=== PATIENT | female | born 1995 | race Caucasian/White ===

== ENCOUNTER 2017-04-10 09:03 | Emergency (ER) | payer SELFPAY ==
[2016-07-20 19:30] VITALS: Ht 165.1 cm; Wt 89.4 kg
[~2017-04-10] VITALS: Ht 165.1 cm; Wt 89.4 kg
[~2017-04-10 09:03] MED LIST: ACE3 PO; ACET-1966 PO; BUTA1CAP4 PO; Benzocaine 60 ML TP; DOCU240C67 PO; IBUP800T37 PO; Lanolin TP; PREN-127 PO; TUCKS TP
--- NOTE | 2017-04-10 09:15 | ER Report ---
History and Physical Time Seen By MD: 09:14 Hx. of Stated Complaint: PT PRESENTS WITH NON PROD COUGH, DYSPNEA AND POSS FEVER SINCE WEDNESDAY. INTERMITANT CHEST DISCOMFORT WHICH GOT WORSDE THIS AM HPI/ROS 21-year-old otherwise healthy female presents to the emergency department with flulike symptoms for the past 2-3 days. She also reports pleuritic chest pain. She reports cough subjective fever chills, pleuritic chest pain and diffuse back pain. Also reports nausea and vomiting, although does not complain of abdominal pain. No dysuria. To take by mouth. Was mostly concerned with the chest pain. She has Nexplanon, does not smoke, and has no PE risk factors. Remainder of the 14 system rev: Yes Allergies: Coded Allergies: latex (Verified Allergy, Unknown, 04/10/17) Home Meds Active Scripts Ibuprofen (IBUPROFEN) 600 Mg Tablet, 1 TAB PO Q6H for 10 Days, #30 TAB Prov:ARI PENN MD 04/10/17 Ondansetron (ZOFRAN ODT) 4 Mg Tab.rapdis, 4 MG PO Q6H Y for NAUSEA/VOMITING, # 20 TAB.BRITTANY 0 Refills Prov:ARI PENN MD 04/10/17 Ibuprofen (IBUPROFEN) 800 Mg Tablet, 800 MG PO Q8H@0700,1500,2300 for 10 Days, TAB Prov:ANNE MUÑOZ MD 07/23/16 Discontinued Reported Medications Butalb/Acetaminophen/Caffeine (FIORICET 50-300-40 MG CAPSULE) 1 Each Capsule, 1 EACH PO Q4H Y for HEADACHE, CAPSULE 07/20/16 Vits W-Ca,Fe,Fa(<1MG) ( VITAMINS) 1 Each Tablet, 1 EACH PO DAILY, TAB 06/05/16 Discontinued Scripts [Lanolin Oint 7 Gm Tube] 7 GM OINT No Conflict Check, 0 GM TP PRN Y for DISCOMFORT FOR NURSING MOTHERS, TUBE Prov:ANNE MUÑOZ MD 07/23/16 Glycerin/Witch Colleen [place] (PREPARATION H) 1 Pkg Pad, 0 PKG TP PRN Y for PAIN for 10 Days, PAD Prov:ANNE MUÑOZ MD 07/23/16 Docusate Calcium (DOCUSATE CALCIUM) 240 Mg Capsule, 240 MG PO BID for 10 Days, CAPSULE Prov:ANNE MUÑOZ MD 07/23/16 [Benzocaine 20% 60 Ml Btl] 60 ML AERS No Conflict Check, 0 ML TP PRN Y for PAIN for 10 Days Prov:ANNE MUÑOZ MD 07/23/16 Acetaminophen/Codeine (TYLENOL #3 (OR EQUIV)) 1 Ea Tab, 1-2 EACH PO Q4H Y for PAIN, #10 TAB Prov:ANNE MUÑOZ MD 07/23/16 Reviewed Nurses Notes: Yes Old Medical Records Reviewed: Yes Hx Smoking: No Smoking Status: Never Smoker Exposure to Second Hand Smoke?: No Hx Substance Use Disorder: No Hx Alcohol Use: No Constitutional Vital Sign - Last 24 Hours 04/10/17 09:07 Temp 99.5 Pulse 107 Resp 20 Intake and Output 04/10/17 04/10/17 04/11/17 15:00 23:00 07:00 Intake Total 1000 ml Balance 1000 ml Physical Exam General Appearance: The patient is alert, has no immediate need for airway protection and no current signs of toxicity. Eyes: Pupils equal and round no injection. Respiratory: Chest is non tender, lungs are clear to auscultation. Cardiac: regular rhythm but tachycardic Gastrointestinal: Abdomen is soft and non tender, no masses, bowel sounds normal. Neck: Neck is supple and non tender. Extremities have full range of motion and are non tender. Skin: No rashes or lesions. DIFFERENTIAL DIAGNOSIS: After history and physical exam differential diagnosis was considered for adult fever including but not limited to viral syndromes including influenza, urinary tract infection, pneumonia and sepsis. Medical Decision Making Data Points Result Diagram: 04/10/17 0945 04/10/17 0945 Laboratory Hematology Test 04/10/17 09:45 04/10/17 10:10 04/10/17 10:46 Red Blood Count 5.01 M/uL (4.17-5.56) Mean Corpuscular Volume 80.7 fL (80.0-96.0) Mean Corpuscular Hemoglobin 26.8 pg (26.0-33.0) Mean Corpuscular Hemoglobin Concent 33.2 g/dL (32.0-36.0) Red Cell Distribution Width 14.3 % (11.5-14.5) Mean Platelet Volume 8.6 fL (7.2-11.1) Neutrophils (%) (Auto) 69.7 % (39.4-72.5) Lymphocytes (%) (Auto) 16.0 % (17.6-49.6) Monocytes (%) (Auto) 13.8 % (4.1-12.4) Eosinophils (%) (Auto) 0.1 % (0.4-6.7) Basophils (%) (Auto) 0.4 % (0.3-1.4) Nucleated RBC Relative Count (auto) 0.0 /100WBC Neutrophils # (Auto) 7.0 K/uL (2.0-7.4) Lymphocytes # (Auto) 1.6 K/uL (1.3-3.6) Monocytes # (Auto) 1.4 K/uL (0.3-1.0) Eosinophils # (Auto) 0.0 K/uL (0.0-0.5) Basophils # (Auto) 0.0 K/uL (0.0-0.1) Nucleated RBC Absolute Count (auto) 0.00 K/uL Peripheral Blood Smear No Y/N Sodium Level 140 mmol/L (137-145) Potassium Level 4.6 mmol/L (3.5-5.0) Chloride Level 105 mmol/L (98-107) Carbon Dioxide Level 23 mmol/L (22-31) Blood Urea Nitrogen 7 mg/dl (7-18) Creatinine 0.50 mg/dl (0.52-1.04) Glomerular Filtration Rate Calc > 60.0 Random Glucose 101 mg/dl (75-110) Calcium Level 9.1 mg/dl (8.4-10.2) Total Bilirubin 0.4 mg/dl (0.2-1.3) Aspartate Amino Transf (AST/SGOT) 29 U/L (0-35) Alanine Aminotransferase (ALT/SGPT) 40 U/L (0-56) Alkaline Phosphatase 93 U/L (0-126) Total Protein 7.2 gm/dl (6.3-8.2) Albumin 4.1 g/dl (3.5-5.0) Human Chorionic Gonadotropin, Qual Negative (NEGATIVE) D-Dimer Quantitative (PE/DVT) 0.35 ug/ml (0-0.50) Influenza Virus Type A (PCR) Negative (NEGATIVE) Influenza Virus Type B (PCR) Negative (NEGATIVE) Chemistry Test 04/10/17 09:45 04/10/17 10:10 04/10/17 10:46 White Blood Count 10.0 k/uL (4.5-11.0) Red Blood Count 5.01 M/uL (4.17-5.56) Hemoglobin 13.4 g/dL (12.0-16.0) Hematocrit 40.5 % (34.0-47.0) Mean Corpuscular Volume 80.7 fL (80.0-96.0) Mean Corpuscular Hemoglobin 26.8 pg (26.0-33.0) Mean Corpuscular Hemoglobin Concent 33.2 g/dL (32.0-36.0) Red Cell Distribution Width 14.3 % (11.5-14.5) Platelet Count 328 K/uL (150-450) Mean Platelet Volume 8.6 fL (7.2-11.1) Neutrophils (%) (Auto) 69.7 % (39.4-72.5) Lymphocytes (%) (Auto) 16.0 % (17.6-49.6) Monocytes (%) (Auto) 13.8 % (4.1-12.4) Eosinophils (%) (Auto) 0.1 % (0.4-6.7) Basophils (%) (Auto) 0.4 % (0.3-1.4) Nucleated RBC Relative Count (auto) 0.0 /100WBC Neutrophils # (Auto) 7.0 K/uL (2.0-7.4) Lymphocytes # (Auto) 1.6 K/uL (1.3-3.6) Monocytes # (Auto) 1.4 K/uL (0.3-1.0) Eosinophils # (Auto) 0.0 K/uL (0.0-0.5) Basophils # (Auto) 0.0 K/uL (0.0-0.1) Nucleated RBC Absolute Count (auto) 0.00 K/uL Peripheral Blood Smear No Y/N Glomerular Filtration Rate Calc > 60.0 Calcium Level 9.1 mg/dl (8.4-10.2) Total Bilirubin 0.4 mg/dl (0.2-1.3) Aspartate Amino Transf (AST/SGOT) 29 U/L (0-35) Alanine Aminotransferase (ALT/SGPT) 40 U/L (0-56) Alkaline Phosphatase 93 U/L (0-126) Total Protein 7.2 gm/dl (6.3-8.2) Albumin 4.1 g/dl (3.5-5.0) Human Chorionic Gonadotropin, Qual Negative (NEGATIVE) D-Dimer Quantitative (PE/DVT) 0.35 ug/ml (0-0.50) Influenza Virus Type A (PCR) Negative (NEGATIVE) Influenza Virus Type B (PCR) Negative (NEGATIVE) Coagulation Test 04/10/17 10:10 D-Dimer Quantitative (PE/DVT) 0.35 ug/ml ED Course/Re-evaluation ED Course 21-year-old female presented to the emergency department with pleuritic chest pain, subjective fever chills, bodyaches, cough, and nausea and vomiting. Also tachycardic upon arrival. She was given 1 L normal saline, Toradol, and Zofran with relief of symptoms. An EKG was obtained and shows sinus tachycardia. She is low risk for a PE and has a negative d-dimer so a CTA of the chest not indicated. Her chest x-ray was normal. Her labs including influenza were all normal are negative. I think this represents a non-influenza A or B viral syndrome. I counseled her to continue with supportive care. I will discharge her with ibuprofen 600 mg tabs as well as Zofran. Decision to Disposition Date: Apr 10, 2017 Decision to Disposition Time: 11:58 Depart Departure Latest Vital Signs Vital Signs Date Time Temp Pulse Resp B/P (MAP) Pulse Ox O2 Delivery O2 Flow Rate FiO2 04/10/17 09:07 99.5 107 20 Impression: Primary Impression: Viral syndrome Condition: Improved Referrals: BLAZE ABBOTT DO (PCP) New Scripts Ibuprofen (IBUPROFEN) 600 Mg Tablet 1 TAB PO Q6H for 10 Days, #30 TAB Prov: ARI PENN MD 04/10/17 Ondansetron (ZOFRAN ODT) 4 Mg Tab.rapdis 4 MG PO Q6H Y for NAUSEA/VOMITING, #20 TAB.BRITTANY 0 Refills Prov: ARI PENN MD 04/10/17 Patient Instructions: Viral Syndrome (ED) ARI PENN MD Apr 10, 2017 09:15
[2017-04-10] MEDS ORDERED: NS(*) 0.9% 1000 ML BAG 1,000 ML IV ONE (09:31)
[2017-04-10] MEDS ORDERED: ONDANSETRON 4 MG/2 ML VIAL IVP ONE (09:35)
[2017-04-10] MEDS ORDERED: KETOROLAC 30 MG/ML VIAL IVP ONE (09:35)
[2017-04-10 10:01] LABS: PLATELET COUNT, AUTOMATED 328 K/uL (150-450)
--- NOTE | 2017-04-10 10:18 | RADIOLOGY IMAGING REPORT ---
FACILITY: [facility] PATIENT NAME: Dinora Fu : 1995 MR: [id number] V: [id number] EXAM DATE: ORDERING PHYSICIAN: ARI PNEN TECHNOLOGIST: Location: [facility] Patient: Dinora Fu : 1995 Visit/Account:[id number] Date of Sevice: 04/10/2017 EXAMINATION: Chest radiographs 2 views HISTORY: Chest pain. Respiratory distress. COMPARISON: None. FINDINGS: PA and lateral views of the chest are submitted. Lines/tubes: None. Lungs/pleura: No focal consolidation or pleural effusion. Pulmonary vascularity is within normal hinkle its. No evidence of pneumothorax. Heart: Normal heart size. Mediastinum: Negative. Bony structures/body wall: Negative. IMPRESSION: No radiographic evidence of acute cardiopulmonary disease. Report Dictated By: Julio Cornelius MD at 04/10/2017 10:12 AM Report E-Signed By: Julio Cornelius MD at 04/10/2017 10:13 AM WSN:[id number]
[2017-04-10 12:00] VITALS: BP 105/70
[2017-04-10] MEDS ORDERED: IBUP600T22 PO (12:02)
[2017-04-10] MEDS ORDERED: ONDA4TAB PO (12:02)
--- NOTE | 2017-04-10 16:47 | EKG ---
FACILITY: [facility] [place] PATIENT NAME: STEVIE CHILDERS : [id number] MR: [id number] V: [id number] EXAM DATE: ORDERING PHYSICIAN: ARI PENN TECHNOLOGIST: ANASTACIO Mcdonald Reason : RESPIRATORY Blood Pressure : / mmHG Vent. Rate : 105 BPM Atrial Rate : 105 BPM P-R Int : 130 ms QRS Dur : 078 ms QT Int : 346 ms P-R-T Axes : 026 059 016 degrees QTc Int : 457 ms Sinus tachycardia Otherwise normal ECG No previous ECGs available Confirmed by WILL RAMIREZ ([id number]) on 04/10/2017 8:37:35 PM Referred By: FILI Confirmed By:WILL RAMIREZ
== END 2017-04-10 12:14 | disposition home or self-care (01) ==
LOC: ER 09:03
DX: B34.9 Viral infection, unspecified (principal)
CPT/HCPCS: 36415; 71046; 84703; 85025; 85379; 87502; 93005; 96361; 96374; 96375; 99284; J1885; J2405; J7030; 82040; 82247; 82310; 82374; 82435; 82565; 82947; 84075; 84132; 84155; 84295; 84450; 84460; 84520

== ENCOUNTER → 2018-03-18 | Outpatient (CLI) | payer MEDICAID ==
[2016-07-20 19:30] VITALS: BMI 35.8
[~2018-03-18] MED LIST changes: +IBUP600T22 PO; +ONDA4TAB PO
[2018-03-18 11:06] LABS: PLATELET COUNT, AUTOMATED 305 K/uL (150-450)
== END ==
LOC: LAB 08:01
PROVIDERS: ATTEND Obstetrics & Gynecology
DX: Z34.91 Encounter for supervision of normal pregnancy, unspecified, first trimester (principal)
CPT/HCPCS: 36415; 81001; 85025; 86592; 86703; 86762; 86850; 86900; 86901; 87088; 87340

== ENCOUNTER → 2018-03-23 | Outpatient (CLI) | payer MEDICAID ==
[2016-07-20 19:30] VITALS: BMI 35.8
== END ==
LOC: LAB 08:51
PROVIDERS: ATTEND Student in an Organized Health Care Education/Training Program
DX: Z34.91 Encounter for supervision of normal pregnancy, unspecified, first trimester (principal)
CPT/HCPCS: 87491; 87591

== ENCOUNTER → 2018-05-16 | Outpatient (CLI) | payer MEDICAID ==
[2016-07-20 19:30] VITALS: BMI 35.8
[~2018-05-16] MED LIST changes: +ASPI1TAB35 PO; +BUTA1CAP6 PO; +ONDA4TAB97 PO
--- NOTE | 2018-05-16 14:32 | RADIOLOGY IMAGING REPORT ---
FACILITY: [facility] - [place] PATIENT NAME: Dinora Fu : 1995 MR: [id number] V: [id number] EXAM DATE: ORDERING PHYSICIAN: BLAZE ABBOTT TECHNOLOGIST: Location: [facility] Patient: Dinora Fu : 1995 Visit/Account:[id number] Date of Sevice: 05/16/2018 [facility] [place] HISTORY: 20 week anatomical survey, history of hypertension COMPARISON: None. TECHNIQUE: Transabdominal imaging was performed for assessment of the fetus and maternal pelvic s tructures. Transvaginal imaging was not performed. FINDINGS: Intrauterine gestations: One. presentation: Breech. heart rate: 158 bpm. Amniotic fluid volume: Normal; HELADIO 10.47 cm; MVP 3.79 cm. Placenta: Posterior. The distal edge of the placenta is 3.93 cm from the cervix. Uterus: Gravid, otherwise grossly unremarkable where visualized. Maternal adnexa/ovaries: Grossly unremarkable, ovaries not visualized. Cervix: Grossly long and closed. Gestational Parameters: BPD: 4.35 cm, 18th percentile HC: 17.53 cm, 44th percentile AC: 15.5 cm, 67th percentile FL: 3.04 cm, 22nd percentile Average ultrasound age (AUA): 20 weeks/ zero days Estimated age based on LMP: 20 weeks/ zero days Estimated weight (EFW): 329 grams +/- 48 grams Anatomic Survey: Intracranial structures, 4-chamber heart, stomach, kidneys, urinary bladder, spine, 3-vessel cord and cord insertion are unremarkable. Two upper and two lower extremities visualized. IMPRESSION: Single viable fetus in breech presentation with an estimated gestational age by measurements of 20 we eks and zero days. This corresponds to the estimated age by LMP of 20 weeks and zero days Estimated weight 329 g The placenta is posterior with the distal edge 3.93 cm from the cervix Report Dictated By: Deepika Simpson MD at 05/16/2018 2:12 PM Report E-Signed By: Deepika Simpson MD at 05/16/2018 2:26 PM WSN:[id number]
== END ==
LOC: RAD 09:07
PROVIDERS: ATTEND Student in an Organized Health Care Education/Training Program
DX: Z02.9 Encounter for administrative examinations, unspecified (principal)

== ENCOUNTER 2018-06-17 21:47 | Outpatient (CLI) | payer MEDICAID ==
[~2018-06-17] VITALS: Ht 167.6 cm; Wt 98.4 kg
[2018-06-17 22:18] VITALS: Ht 167.6 cm; Wt 98.4 kg
--- NOTE | 2018-06-18 00:42 | RADIOLOGY IMAGING REPORT ---
FACILITY: [facility] - [place] PATIENT NAME: Dinora Fu : 1995 MR: [id number] V: [id number] EXAM DATE: [id number] ORDERING PHYSICIAN: IZZY NUNEZ TECHNOLOGIST: Location: [facility] [place] Patient: Dinora Fu : 1995 Visit/Account:[id number] Date of Sevice: 06/17/2018 ultrasound: Indication: Spotting and cramping. Technique: Routine imaging, with Doppler. Comparison: 05/16/2018 position and heart rate: There is a single live intrauterine gestation in a breech presentation . The heart rate is 140. anatomy: Unremarkable, as visualized. Measurements, EFA, and EDC: BPD - 6.1 cm (24 weeks 6 days) (50th percentile) Head circumference - 22.9 cm (25 weeks 0 days) (43rd percentile) Abdominal circumference - 20.6 cm (25 weeks 2 days) (60th percentile) Femur length - 4.5 cm (25 weeks 0 days) (48th percentile) Estimated age - 25 weeks 1 day CHUN - 09/29/2018 EFW - 761 g (61st percentile) Placenta: Posterior and homogeneous. There is no evidence of placenta previa or abruption. Cervical length: 4.5 cm. The cervix is closed. Amniotic fluid: The HELADIO measures 13.3 cm. The MVP was 4.7 cm. IMPRESSION: There is a single live intrauterine gestation in a breech presentation, as detailed above . No acute abnormality is identified. Report Dictated By: Zachary Jain MD at 06/18/2018 12:31 AM Report E-Signed By: Zachary Jain MD at 06/18/2018 12:39 AM WSN:[id number]
== END 2018-06-17 23:30 | disposition home or self-care (01) ==
LOC: OB 21:47 → L&D 21:47 → UNDOADMOB 21:47 → OB 21:47 → L&D 23:30 → UNDODISOB 23:30 → EDSTATUS 06-20 15:49
PROVIDERS: ATTEND Obstetrics & Gynecology
DX: O26.892 Other specified pregnancy related conditions, second trimester (principal); Z3A.26 26 weeks gestation of pregnancy
CPT/HCPCS: 76815; 81001; 82731; 84112; G0463; 99213; G0378; G0379

== ENCOUNTER → 2018-06-28 | Outpatient (CLI) | payer MEDICAID ==
[2018-06-22 07:51] VITALS: BMI 33.9
[~2018-06-28] MED LIST changes: +METR-1 PO
== END ==
LOC: LAB 13:15
PROVIDERS: ATTEND Student in an Organized Health Care Education/Training Program
DX: R30.0 Dysuria (principal); N89.8 Other specified noninflammatory disorders of vagina
CPT/HCPCS: 87088; 87210

== ENCOUNTER → 2018-07-14 | Outpatient (CLI) | payer MEDICAID ==
[2018-06-22 07:51] VITALS: BMI 33.9
[2018-07-14 12:42] LABS: PLATELET COUNT, AUTOMATED 288 K/uL (150-450)
== END ==
LOC: LAB 08:22
PROVIDERS: ATTEND Student in an Organized Health Care Education/Training Program
DX: Z34.92 Encounter for supervision of normal pregnancy, unspecified, second trimester (principal)
CPT/HCPCS: 36415; 82950; 85025

== ENCOUNTER → 2018-09-02 | Outpatient (CLI) | payer MEDICAID ==
[2018-06-22 07:51] VITALS: BMI 33.9
[~2018-09-02] MED LIST changes: +DIPH0.5S2 IM
== END ==
LOC: LAB 15:59
PROVIDERS: ATTEND Obstetrics & Gynecology
DX: O16.3 Unspecified maternal hypertension, third trimester (principal)
CPT/HCPCS: 36415; 82040; 82247; 82310; 82374; 82435; 82565; 82570; 82947; 84075; 84132; 84155; 84156; 84295; 84450; 84460; 84520; 85027

== ENCOUNTER → 2018-09-07 | Outpatient (CLI) | payer MEDICAID ==
[2018-06-22 07:51] VITALS: BMI 33.9
== END ==
LOC: LAB 09:31
PROVIDERS: ATTEND Student in an Organized Health Care Education/Training Program
DX: Z36.85 Encounter for antenatal screening for Streptococcus B (principal)
CPT/HCPCS: 87081

== ENCOUNTER → 2018-09-09 | Outpatient (CLI) | payer MEDICAID ==
[2018-06-22 07:51] VITALS: BMI 33.9
== END ==
LOC: LAB 11:52
PROVIDERS: ATTEND Advanced Practice Midwife
DX: O26.899 Other specified pregnancy related conditions, unspecified trimester (principal)
CPT/HCPCS: 84112

== ENCOUNTER 2018-09-11 00:10 | Outpatient (CLI) | payer MEDICAID ==
[2018-09-11] MEDS ORDERED: ACETAMINOPHEN 500 MG TAB PO ONE (01:15)
[2018-09-11] MEDS ORDERED: ACETA/BUTAL/CAFF 325/50/40 TAB PO PRN (01:15)
[2018-09-11] MEDS ORDERED: LR(*) 1000 ML BAG 1,000 ML IV PRN (01:29)
[2018-09-11 02:39] LABS: PLATELET COUNT, AUTOMATED 283 K/uL (150-450)
--- NOTE | 2018-09-11 02:50 | History & Physical ---
History of Present Illness Age of Patient: 22 : 2 Para or TPAL: 1 Estimated Gestational Age: 36.6 Chief Complaint Pt reported regular contractions at home starting 09/10/18 at 2230 anywhere from 3-5 minutes apart. She rates her pain about a 5 and sometimes more. The contra ction starts in her back and radiates to her front. +FM, no LOF or VB. She reports a headache all day long that she has taken Firocet for without relief. She has been getting frequent headaches in the last few weeks. She denies vision changes, but does have some RUQ pain. Her baseline labs were normal last week and up until today she has not had a qualifying elevated pressure. Her mother is at the bedside with her. History Patient's Blood Type: A Positive Rubella Status: Immune Group B Strep Screen: Negative Allergies: Coded Allergies: latex (Verified Allergy, Unknown, 04/10/17) Social History: No T/E/D. Family History: FH: diabetes mellitus BROTHER OR SISTER Maternal Grandmother Maternal Grandfather FH: hypertension Med Rec Home Meds Active Scripts Butalb/Acetaminophen/Caffeine (FIORICET 50-300-40) 1 Each Capsule, 1-2 EACH PO Q6H, #30 CAPSULE 1 Refill Prov:BLAZE ABBOTT DO 06/28/18 Reported Medications Aspirin/Acetaminophen/Caffeine (EXCEDRIN EXTRA STRENGTH CAPLET) 1 Each Tablet, 1 EACH PO 05/16/18 Acetaminophen (TYLENOL) 325 Mg Tablet, 325 MG PO PRN, TAB 03/18/18 Vits W-Ca,Fe,Fa(<1MG) ( VITAMINS) 1 Each Tablet, 1 EACH PO DAILY, TAB 03/18/18 Review of Systems Constitutional: No Fever Respiratory: Shortness of Breath Gastrointestinal: No Nausea, No Vomiting; Diarrhea Musculoskeletal: Pain (back and abdominal pain with contractions) Psychiatric: No Depression, No Anxiety Exam General Exam Vital Signs Vital Signs Date Time Temp Pulse Resp B/P (MAP) Pulse Ox O2 Delivery O2 Flow Rate FiO2 09/11/18 02:59 97.7 117 20 131/73 (92) 91 Room Air General Apperance: Alert/Awake/No Acute Distress Neuro: No Gross deficits Eyes: Normal Extraocular Movement & Vison ENT: Normal Cardiovascular: Regular Rate and Rhythm Respiratory: No Respiratory Distress Abdomen: Gravid - Tender (all over abdomen, but has been having this the last week) : Normal Musculoskeletal: No Weakness/Pain Psychological: Alert & Oriented X3, Appropriate Mood & Affect Cervical Dialation: 3 Cervical Effacement (%): 60 Cervical Consistency: Moderate Cervical Position: Posterior Station: -2 Presentation: Vertex (confirmed with US) Uterine Contraction Strength: Mild (3-9 min apart) UC Resting Tone: Soft Fetus Feeling Movement?: Yes Estimated Weight(grams): 3200 Heart Tones: 130 Heart Tone Variabilty: Moderate FHT Accelerations: Present, 15X15 FHT Decelerations: None Medical Decision Making Data Points Result Diagram: 09/11/1822809/11/18228 P to C: .13 Imaging Ultrasound/Imaging vertex confirmed cephalic by nurses VTE Prophylasis: Adult Pharmacological Contraindicati: Pt at Low Risk for VTE Mechanical Contraindications: Pt at Low Risk for VTE Assessment and Plan Hospital Day: 1 Problems: (1) 36 weeks gestation of Status: Acute (2) Uterine contractions Onset Date: ~ 09/10/2018 Status: Acute Assessment & Plan: LG is a 22y.o. at 36w6d wks with an Estimated Date of Delivery: dated by LMP and first trimester US here for complaints of painful, regular uterine contractions Labor state: Possibly early labor, Admit to triage for IVF, Pre E labs (WNL) and rest. Plan to recheck cervix in 2 hours from first check to monitor for cervical change. If no change and contractions are still painful give patient option of discharge home with 5mg Ambien or therapeutic rest (morphine 8mg IM and 25 mg Po Phenergan) under observation to monitor for active labor. Reviewed R/B/A with pt and pt would like Therapeutic rest if she has no cervical change. well-being: Category I FHT: intermittent monitoring for first 2 hours and then continuous monitoring if Therapeutic rest is used, along with continuous maternal o2 saturation. Maternal well-bein mild range BPs at admission time ( less than 4 hours apart) and then normotensive, Afebrile, membranes presumed intact PNL: GBS Neg, Type/Rh A+, rubella immune Pain Management: If labor plans for epidural. Morphine and Phenergan if therapeutic rest c/b: * Hx in first of Pre Eclampsia: on baby asa 81mg. Baseline labs WNL * First delivery of 37 0/7 Anticipate labor progression, re-evaluate in 2-3 hours or prn SARATH GUERRA CNM Sep 11, 2018 02:50
[2018-09-11 02:59] VITALS: BP 131/73
[2018-09-11] MEDS ORDERED: hydrOXYzine PAMOATE 25 MG CAP PO ONE (03:40)
[2018-09-11] MEDS ORDERED: PROMETHAZINE 25 MG/ML 1 ML AMP IM ONE (03:50)
[2018-09-11] MEDS ORDERED: MORPHINE 10 MG/ML SYR IM ONE (03:55)
[2018-09-11] MEDS ORDERED: MORPHINE 2 MG/ML SYR ONE ×2 (04:17→04:18)
[2018-09-11] MEDS ORDERED: PROMETHAZINE HCL 25 MG TAB PO ONE (04:40)
[2018-09-11] MEDS ORDERED: MORPHINE 2 MG/ML SYR IM ONE (04:40)
--- NOTE | 2018-09-11 11:47 | Labor Progress Note ---
Labor Subjective Progress Notes Subjective Pt has been sleeping mostly since morphine and Phenergan. When her cervix was rechecked at 0330, there was no change, so she opted for therapeutic rest. Contractions spaced out and pt was feeling less pain. Headache subsided after Fioricet as well. At 0500 pt's cervix was still the same. +FM, no LOF or VB. Feeling Movement?: Yes Labor Pain: Mild Neurological: No Headache Eyes: No Visual Disturbances Labor Objective Vital Signs Vital Signs Date Time Temp Pulse Resp B/P (MAP) Pulse Ox O2 Delivery O2 Flow Rate FiO2 09/11/18 02:59 97.7 117 20 131/73 (92) 91 Room Air Presentation: Vertex Uterine Contraction Strength: Mild (difficult to assess contraction pattern, pt sleeping through) UC Resting Tone: Soft Fetus Heart Tones: 130 Heart Tone Variabilty: Moderate FHT Accelerations: Present, 15X15 FHT Decelerations: None FHT Category: I Other Result Diagram: 09/11/1822809/11/18228 Assessment and Plan Problems: (1) 36 weeks gestation of Status: Acute (2) Uterine contractions Onset Date: ~ 09/10/2018 Status: Acute Assessment & Plan: LG is a 22y.o. at 36w6d wks with an Estimated Date of Delivery: dated by LMP and first trimester US here for complaints of painful, regular uterine contractions Labor state: Suspecting prodromal labor as no cervical change all night. Nurse will check cervix when pt wakes. If no change plan for DC to home with labor precautions, increase hydration, resting when she can and preeclampsia precautions. Plan to return for regularly scheduled OB with Dr. Haywood this week as well at BP check. well-being: Category I FHT: continuous monitoring Maternal well-bein mild range BPs at admission time ( less than 4 hours apart) and then normotensive, Afebrile, membranes presumed intact PNL: GBS Neg, Type/Rh A+, rubella immune Pain Management: If labor plans for epidural c/b: * Hx in first of Pre Eclampsia: on baby asa 81mg. Baseline labs WNL * First delivery of 37 0/7 Anticipate discharge to home and RTC for regularly scheduled OB visit and BP check this week SARATH GUERRA CNM Sep 11, 2018 11:47
[2018-09-13 16:15] VITALS: Ht 170.2 cm
== END 2018-09-11 12:35 | disposition home or self-care (01) ==
LOC: OB 00:10 → L&D 00:10 → UNDODISOB 11:58 → L&D 12:35 → EDSTATUS 09-12 16:55
PROVIDERS: ATTEND Obstetrics & Gynecology
DX: O47.03 False labor before 37 completed weeks of gestation, third trimester (principal); Z3A.36 36 weeks gestation of pregnancy
CPT/HCPCS: 36415; 81001; 82570; 84156; 85025; G0463; J2270; J7120; Q0169; 82040; 82247; 82310; 82374; 82435; 82565; 82947; 84075; 84132; 84155; 84295; 84450; 84460; 84520; 99213; G0378; G0379

== ENCOUNTER 2018-09-13 15:11 | Inpatient (IN) | payer MEDICAID ==
[~2018-09-13] VITALS: Ht 167.6 cm; Wt 107.0 kg
[2018-09-13] MEDS ORDERED: OXYTOCIN 30 UNIT/NS 500 ML 500 ML IV PRN (16:06)
[2018-09-13] MEDS ORDERED: FAMOTIDINE(*) 20MG/50ML PREMIX 50 ML IVPB PRN (16:06)
[2018-09-13] MEDS ORDERED: LR(*) 1000 ML BAG 1,000 ML IV PRN (16:06)
[2018-09-13] MEDS ORDERED: ceFAZolin(*) 2GM/D5W 50ML 50 ML IVPB PRN (16:06)
[2018-09-13] MEDS ORDERED: LIDOCAINE 1% LOCAL 300 MG/30ML INJ PRN (16:10)
[2018-09-13] MEDS ORDERED: fentaNYL CITR 100 MCG/2 ML AMP IVP PRN (16:10)
[2018-09-13] MEDS ORDERED: FAMOTIDINE 20 MG TAB PO PRN (16:10)
[2018-09-13] MEDS ORDERED: FLUSH 10 ML SYR IVP PRN (16:10)
[2018-09-13] MEDS ORDERED: METOCLOPRAMIDE 10 MG/2 ML SDV IVP PRN (16:10)
[2018-09-13] MEDS ORDERED: TERBUTALINE SULF 1 MG/ML VIAL SUBQ PRN (16:10)
[2018-09-13] MEDS ORDERED: LIDOCAINE/SOD BICARB 8.4% SYR SC PRN (16:10)
[2018-09-13 16:15] VITALS: BP 131/86; Ht 167.6 cm; Wt 107.0 kg
[2018-09-13] MEDS ORDERED: fentaNYL CITR 100 MCG/2 ML AMP IT PRN (17:15)
[2018-09-13] MEDS ORDERED: BUPIVACAINE 0.25% MPF INJ EPI PRN (17:15)
[2018-09-13] MEDS ORDERED: LIDOCAINE/PF 2% 200MG/10ML AMP 200 MG/10 ML AMPUL EPI PRN (17:15)
[2018-09-13] MEDS ORDERED: ONDANSETRON 4 MG/2 ML VIAL IVP PRN (17:15)
[2018-09-13] MEDS ORDERED: BUPIVACAINE 0.5% INJ 30ML VIAL EPI PRN (17:15)
[2018-09-13] MEDS ORDERED: FENTANYL/ROPIVACAINE 100 ML BAG EPI PRN (17:15)
[2018-09-13] MEDS ORDERED: LIDO/EPI 2% MPF 1:200,000 20ML EPI PRN (17:15)
--- NOTE | 2018-09-13 17:23 | History & Physical ---
History of Present Illness Age of Patient: 22 : 2 Para or TPAL: 1 EDC per LMP: Oct 02, 2018 Estimated Gestational Age: 37.1 Chief Complaint Patient reports to clinic today for blood pressure check. She had one elevated blood pressure on labor and delivery this past weekend and today has her second elevated blood pressure. She also reports that she's had a headache today with spots in her vision. She denies right upper quadrant or epigastric pain. Reports good movement, no leaking of fluid or vaginal bleeding. She understands her diagnosis of gestational hypertension and the recommendation for induction today. History Patient's Blood Type: A Positive Rubella Status: Immune Group B Strep Screen: Negative Allergies: Coded Allergies: latex (Verified Allergy, Unknown, 04/10/17) Social History: No T/E/D. Family History: FH: diabetes mellitus BROTHER OR SISTER Maternal Grandmother Maternal Grandfather FH: hypertension Med Rec Home Meds Active Scripts Butalb/Acetaminophen/Caffeine (FIORICET 50-300-40) 1 Each Capsule, 1-2 EACH PO Q6H, #30 CAPSULE 1 Refill Prov:SCARBLAZE 06/28/18 Reported Medications Aspirin/Acetaminophen/Caffeine (EXCEDRIN EXTRA STRENGTH CAPLET) 1 Each Tablet, 1 EACH PO 05/16/18 Acetaminophen (TYLENOL) 325 Mg Tablet, 325 MG PO PRN, TAB 03/18/18 Vits W-Ca,Fe,Fa(<1MG) ( VITAMINS) 1 Each Tablet, 1 EACH PO DAILY, TAB 03/18/18 Review of Systems Constitutional: No Fever Neurological: Other (headache) Eyes: Vision Change Cardiovascular: No Chest Pain Gastrointestinal: No Nausea, No Vomiting, No Diarrhea; Abdominal Pain (occasional contraction pain) Musculoskeletal: Pain Psychiatric: No Depression, No Anxiety Exam General Exam General Apperance: Alert/Awake/No Acute Distress Neuro: No Gross deficits Eyes: Normal Extraocular Movement & Vison ENT: Normal Cardiovascular: Regular Rate and Rhythm Respiratory: No Respiratory Distress Abdomen: Gravid - Non-Tender, RUQ Non-Tender : Normal Musculoskeletal: No Weakness/Pain Integumentary: Skin Intact without Lesions or Rash Psychological: Alert & Oriented X3, Appropriate Mood & Affect Cervical Dialation: 4 Cervical Effacement (%): 70 Cervical Consistency: Soft Cervical Position: Posterior Station: -2 Presentation: Vertex UC Resting Tone: Soft Fetus Feeling Movement?: Yes Heart Tones: 135 Heart Tone Variabilty: Moderate FHT Accelerations: Present, 15X15 FHT Decelerations: None FHT Category: I Medical Decision Making VTE Prophylasis: Adult Pharmacological Contraindicati: Pt at Low Risk for VTE Mechanical Contraindications: Pt at Low Risk for VTE Assessment and Plan Hospital Day: 1 MAINFRAME CONSULTANT Assessment: Stable MAINFRAME CONSULTANT Plan: Routine Labor/Induct Care Problems: (1) Gestational [-induced] hypertension without significant pr oteinuria, third trimester Onset Date: ~ 09/13/2018 Status: Acute Assessment & Plan: Pre E labs WNL, P:C .2. Plan for repeat in 6-8 hours if not delivered. Monitor BP and treat if severe range >160/110 (2) 37 weeks gestation of Status: Acute (3) Encounter for induction of labor Onset Date: ~ 09/13/2018 Status: Acute Assessment & Plan: LG is a 22y.o. at 37w1d wks with an Estimated Date of Delivery: 10/02/18 dated by LMP and first trimester US admitted for IOL for GHTN Labor state: IOL for GHTN. Reviewed risks benefits and alternatives of induction techniques with patient. Hook score is 8 so favorable for Pitocin induction and AROM. Patient is agreeable to this plan. She would like to get an epidural before AROM. well-being: Category I FHT: Continuous monitoring for Pitocin and gestational hypertension diagnosis. Pre-E labs within normal limits with protein to creatinine ratio .2. Start Pitocin at 2mu/hr and then increase by 2mu every 20 minutes until adequate contraction pattern reached Maternal well-being: BP normotensive up on labor and delivery, elevated BP in clinic mild range. Will plan to treat if severe range with labetalol, Afebrile PNL: GBS Neg, Type/Rh A+, rubella Immune Pain Management: Plan for epidural before AROM this evening Feed: Breast c/b: * History of preeclampsia in previous with current gestational hypertension diagnosis. On 81mg asa a day up until 36 weeks Anticipate labor progression. Plan for AROM after epidural SARATH GUERRA CNM Sep 13, 2018 17:23
[2018-09-13] MEDS ORDERED: ePHEDrine 25 MG/5 ML DISP.SYR IVP ONE (17:25)
--- NOTE | 2018-09-13 18:36 | Anesthesia OB Pre-Anes Eval ---
History of Present Illness Anesthesia Start Date: Sep 13, 2018 Anesthesia Start Time: 17:44 OB Anesthesia Diagnosis: gestational hypertension Current Complication: gestational hypertention EDC: Oct 03, 2018 : 2 Para: 1 Weight (Pounds): 210 Past Medical History Medical History: obesity Surgical History: no surgical history Previous Anesthesia: epidural Attended Childbirth Classes?: No Hx Anesthesia Reactions: No Hx Family Anesthesia Reaction: No Past Complications: gestational hypertention, obesity Home Meds Active Scripts Butalb/Acetaminophen/Caffeine (FIORICET 50-300-40) 1 Each Capsule, 1-2 EACH PO Q6H, #30 CAPSULE 1 Refill Prov:BLAZE ABBOTT DO 06/28/18 Reported Medications Aspirin/Acetaminophen/Caffeine (EXCEDRIN EXTRA STRENGTH CAPLET) 1 Each Tablet, 1 EACH PO 05/16/18 Acetaminophen (TYLENOL) 325 Mg Tablet, 325 MG PO PRN, TAB 03/18/18 Vits W-Ca,Fe,Fa(<1MG) ( VITAMINS) 1 Each Tablet, 1 EACH PO DAILY, TAB 03/18/18 Allergies: Coded Allergies: latex (Verified Allergy, Unknown, 04/10/17) Anesthesia OB ROS Neurological: migraines/headaches ENT: Denies Tooth caps, Denies Loose teeth, Denies Chipped teeth, Denies Dentures, Denies Bridges, Denies Retainers, Denies Veneers, Denies Implants, Denies Tongue ring, Denies Other Pulmonary: No asthma, No smoker (pks/day/yrs), No other Airway Class: ll Cardiovascular ROS: No edema, No arrhythmia, No other GI ROS: clear liquids ROS: No Herpes, No STD(s), No Liver Disease, No Renal Disease, No Other Endocrine ROS: No diabetes, No gestational diabetes, No thyroid disorder, No other Musculoskeletal ROS: No low back pain, No low back injury, No scoliosis, No other ASA Classification: 3 Assessment and Plan Anesthesia Plan: RAYNA AGUIAR CRNA Sep 13, 2018 18:36
--- NOTE | 2018-09-13 18:39 | Procedure Note ---
Anesthetic Placement Note Anesthesia Plan: LEB Permit for Anesthesia Signed: Yes Anesthesia Technique: Patient Sitting Anesthesia Prep: Chlorhexidine Interspace: L 4-5 Local Anesthetic: 1% Lidocaine, 25 Gauge Needle Amount Local - cc's: 5 Anesthesia Needle: 17g Touhy/Schliff Anesthesia Attempts: 1 Loss of Resistance: Normal Saline Depth of LIZET (cm): 6 Epidural Needle Placement: No CSF, No Blood, No Parasthesia Intrathecal Needle: 27 Gauge Pencan Cerebral Spinal Fluid: Yes, Clear Catheter Insertion (cm): 5 Catheter Type: May - Spring Wound Epidural Dressing: Tegaderm, Tape Anesthesia Tray: Lot Number ([id number]), Expiration Date (11/20/2019), Reference Number ([id number]) Anesthesia Medications: Epidural Test Dose: 1.5 Lido/Epi (1:200,000), Dose - mL (5 mL incrementally), Time (1806), Negative Epidural Loading Dose: 0.2% Ropivicaine, With Fentanyl 2mcg/ml, Dose - ml (5), Time (1810) Epidural Infusion: 0.2% Ropivicaine, With Fentanyl 2mcg/ml, Start Time: (1817) Epidural Pump Setting: Bolus Dose - mL (5), Lockout - Minutes (20), Maintenance Rate - mL/hr (7), Maximum per Hour - mL (22) Complications: None Comment: 100 mcg Fentanyl via epidural catheter at 181 RAYNA JOHNSON CRNA Sep 13, 2018 18:39
--- NOTE | 2018-09-13 21:10 | Anesthesia Progress Note ---
Progress/Maintenance Anesthesia Note Date: Sep 13, 2018 Anesthesia Note Time: 21:00 Pain Intensity: 0 Pump: On Pump Rate (ML/HR): 7 Motor Level: Bending Knees-Bilateral Dilatation: 5 Position: Right, Tilt Assessment and Plan Anesthesia Plan: RAYNA AGUIAR CRNA Sep 13, 2018 21:10
--- NOTE | 2018-09-13 23:34 | Anesthesia Progress Note ---
Progress/Maintenance Anesthesia Note Date: Sep 13, 2018 Anesthesia Note Time: 23:15 Pump: Off Assessment and Plan Assessment: Delivery at 2253. Good analgesia maintained throughout labor/delivery. Anesthesia Stop Day: Sep 13, 2018 Anesthesia Stop Time: 22:53 RAYNA JOHNSON CRNA Sep 13, 2018 23:34
--- NOTE | 2018-09-13 23:37 | OB Delivery Note ---
Delivery Note Vaginal Delivery Type: Spont. Vaginal Delivery Delivery Date: Sep 13, 2018 Delivery Time: 22:53 Estimated Gestational Age(wks): 37.1 Delivery Anesthesia: Epidural Sex: Female Infant Weight (gms): 2855 Apgars: 1 Minute, 5 Minute Repair Needed: Vaginal, 1st Degree Estimated Blood Loss: 200 Delivery Complications: Nuchal Cord (nuchal x1 and body cord x 1) Notes: LG is a 2o year old G1 now P2 with OOC on 09/13/18 at 1730 after IOL with Pitocin and AROM. Pt was admitted to the family care unit on 09/13/18 not in labor for an IOL for GHTN diagnosis 09/13/18. Cervical exam on admission was 4/70/-2. She had AROM on 09/13/18 at 1824 for clear small fluid. Pt was GBS neg. FHR was CAT I prim arily throughout first stage. Pt utilized continuous lumbar epidural primarily for pain management. Pt was completely dilated on 09/13/18 at 2226 and pt began pushing once I arrived at 2240 . At 2253 pt had a NSVB of live female APGARS 8/9 weig kane 6lbs 5oz, 2855g. The head delivered spontaneously without maternal pushing in the OA position and restituted KALIN with one nuchal cord and one body cord and easily somersaulted through at . The anterior shoulder was delivered a traumatically and the posterior shoulder followed. Body delivered easily. Face was wiped with nose and then placed on the maternal abdomen. The infant was dried and stimulated and noted to have a spontaneous cry and spontaneous movement of all 4 extremities. Cord was clamped X 2 by CNM after pulsations ceased and cut by patient's spouse. Mother was in SF position. Cord blood was then collected. At 2259 the placenta and membranes delivered spontaneous and intact with a 3 vessel cord after gentle downward traction. 30 units of Pitocin was placed in 500cc IV to firm the uterus and started immediately after placenta delivery. Upon inspection of the perineum it was found to be intact, but a 1st degree vaginal laceration was noted and repaired in the usual fashion using 3.0 Vicryl rapid under HARESH. Hemostasis observed. A small left labial abrasion was also noted but not repair was necessary. EBL 200 with fundus firm with minimal bleeding. Mom and baby were left in stable condition. "I personally examined the patient and there are no unintended foreign objects in the vagina and all sponge, lap and needle counts were correct." Jeannine Vick CNM was present throughout the entire delivery and Dr. Jorge Haywood was my OB backup Interceptor Operator in Attendence: JEANNINE Sinha CNM Sep 13, 2018 23:37
[2018-09-13] MEDS ORDERED: MAGNESIUM HYDROXIDE* 30ML UDCP PO PRN (23:40)
[2018-09-13] MEDS ORDERED: HYDROCORTISONE 2.5% CR 30GM TB PR PRN (23:40)
[2018-09-13] MEDS: DOCUSATE CALCIUM 240 MG CAP PO SCH (23:40)
[2018-09-14] MEDS: IBUPROFEN 800 MG TAB PO SCH ×3 (01:30→17:58)
[2018-09-14] MEDS: BENZOCAINE 20% 60 ML BTL TP PRN (01:31)
[2018-09-14] MEDS: GLYCERIN/WITCH HAZEL LEAF 1 PK TP PRN (01:31)
[2018-09-14] MEDS: LANOLIN OINT 7 GM TUBE TP PRN (01:31)
[2018-09-14 02:14] VITALS: BP 120/58
[2018-09-14] MEDS: APAP/HYDROCODONE 325/5 TAB PO PRN ×4 (03:09→23:41)
[2018-09-14 05:00] VITALS: BP 118/66
[2018-09-14 08:00] VITALS: BP 116/69
[2018-09-14] MEDS: DOCUSATE CALCIUM 240 MG CAP PO SCH ×2 (08:53→20:49)
--- NOTE | 2018-09-14 10:50 | OB/GYN Progress Note ---
OB Subjective Progress Notes Subjective LG is a 22 y.o. day #1 status-post uncomplicated on 09/13/18 Today she is doing well, currently taking Motrin for pain control with good effect. Reports moderate vaginal bleeding without clots. Ambulating with no dizziness or palpitations. Current feeding plan: and has good latch. Has gotten about 4 hours of sleep since . Her is in the room for support.. Denies/acknowledges symptoms of anxiety/depression, UTI symptoms, pre-eclampsia symptoms, nausea/vomiting. GI: POS Nausea, POS Flatus; NEG Vomiting, NEG Bowel Movement : Voiding Well, Vaginal Bleeding, Moderate Pain: Moderate (uterine cramping), Tolerating PO Pain Meds Neurological: No Headache Eyes: No Visual Disturbances OB Objective Physical Exam Vital Signs Date Time Temp Pulse Resp B/P (MAP) Pulse Ox O2 Delivery O2 Flow Rate FiO2 09/14/18 05:00 97.4 87 18 118/66 (83) 94 Room Air Intake and Output 09/14/18 07:01 Intake Total 500 ml Output Total 900 ml Balance -400 ml Intake Oral 500 ml Output Urine Total 900 ml General Appearance: Alert/Awake/No Acute Distress Neurological: No Gross deficits Eyes: Normal Extraocular Movement & Vison ENT: Normal Respiratory: No Respiratory Distress Abdomen: Fundus Firm : Normal Musculoskeletal: No Weakness/Pain Extremities: No Cyanosis,Clubbing or Edema Integumentary: Skin Intact without Lesions or Rash Psychological: Alert & Oriented X3, Appropriate Mood & Affect Assessment and Plan Problems: (1) Gestational [-induced] hypertension without significant proteinuria, third trimester Onset Date: ~ 09/13/2018 Status: Acute Assessment & Plan: Continue to monitor for s/s of preeclampsia and educated patient and spouse on what to look for. Monitor BP and treat if severe range >160/110 (2) 37 weeks gestation of Status: Resolved (3) Encounter for induction of labor Onset Date: ~ 09/13/2018 Status: Resolved (4) (normal spontaneous vaginal delivery) Status: Resolved (5) First degree laceration of perineum during delivery, Onset Date: ~ 09/14/2018 Status: Acute Assessment & Plan: Monitor for s/s of infection and dehiscence. Encourage pt to take ibuprofen as needed for pain. Encourage using the nixon bottle when urinating and patting dry as well as tuck pads, ice and Dermaplast PRN. (6) care following vaginal delivery Onset Date: ~ 09/13/2018 Status: Acute Assessment & Plan: Assessment & Plan 22 y.o. day 1 from an uncomplicated of a female infant last byron 09/13/18 Coping: Well no s/s of depression and anxiety Vitals: Normotensive to mild range, afebrile Milestones: uterine involution , bleeding , laceration healing well with good approximation. Informed pt that stitches will dissolve on their own in about 2 weeks Feeding: Breast Current Meds: motrin 800mg Q8 Labs: Type/Rh A+, rubella immune, GBS neg, CBC, no repeat done this am as only 200 EBL Immunizations: flu & tdap done prenatally Contraception: unsure at this time Outstanding Issues/Complications: none Education: Reviewed s/s of infection and anxiety and depression Discharge Plan / Clinic Follow-up: Plan for Dc to home tomorrow and return in 2 and 6 weeks for PP visits SARATH GUERRA CNM Sep 14, 2018 10:50
[2018-09-14] MEDS ORDERED: IBUP800T37 PO (10:51)
--- NOTE | 2018-09-14 12:39 | Anesthesia Post Eval Note ---
Anesthesia Post Eval Note Vital Signs Date Time Temp Pulse Resp B/P (MAP) Pulse Ox O2 Delivery O2 Flow Rate FiO2 09/14/18 08:00 Room Air 09/14/18 08:00 97.7 84 16 116/69 (85) 09/14/18 05:00 94 Pt able to participate in Eval: Yes (chart review/nurse report d/t patient being discharged home.) Cardiovascular Status: Satisfactory Respiratory Status: Satisfactory Pain Managment: Satisfactory PO Nausea/Vomiting: Satisfactory Temperature Management: Satisfactory Mental Status: Satisfactory, Alert, Oriented X3 Post-Op Hydration Status: Satisfactory, Tolerating PO Well, Voiding w/o Difficulty Anesthesia Type: LEB Anesthesia Tolerance: no complications noted. RAYNA JOHNSON CRNA Sep 14, 2018 12:39
[2018-09-14 13:40] VITALS: BP 117/75
[2018-09-14 19:50] VITALS: BP 134/82
[2018-09-14 23:25] VITALS: BP 127/81
[2018-09-15] MEDS: IBUPROFEN 800 MG TAB PO SCH ×2 (02:16→08:39)
[2018-09-15 03:50] VITALS: BP 134/97
--- NOTE | 2018-09-15 07:51 | OB/GYN Discharge Summary ---
Discharge Summary Reason for Hosp/Final Diag: (1) Gestational [-induced] hypertension without significant proteinuria, third trimester Onset Date: ~ 09/13/2018 Status: Acute (2) 37 weeks gestation of Status: Resolved (3) Encounter for induction of labor Onset Date: ~ 09/13/2018 Status: Resolved (4) (normal spontaneous vaginal delivery) Status: Resolved (5) First degree laceration of perineum during delivery, Onset Date: ~ 09/14/2018 Status: Acute (6) care following vaginal delivery Onset Date: ~ 09/13/2018 Status: Acute Lates Vital Signs Vital Signs Date Time Temp Pulse Resp B/P (MAP) Pulse Ox O2 Delivery O2 Flow Rate FiO2 09/15/18 03:50 81 15 134/97 (109) 93 Room Air 09/14/18 23:25 98.4 Weight (Pounds): 236 Condition: Improved Discharge: Home Home Meds Active Scripts Butalb/Acetaminophen/Caffeine (FIORICET 50-300-40) 1 Each Capsule, 1-2 EACH PO Q6H, #30 CAPSULE 1 Refill Prov:BLAZE ABBOTT DO 06/28/18 Reported Medications Acetaminophen (TYLENOL) 325 Mg Tablet, 325 MG PO PRN, TAB 03/18/18 Vits W-Ca,Fe,Fa(<1MG) ( VITAMINS) 1 Each Tablet, 1 EACH PO DAILY, TAB 03/18/18 Discontinued Reported Medications Aspirin/Acetaminophen/Caffeine (EXCEDRIN EXTRA STRENGTH CAPLET) 1 Each Tablet, 1 EACH PO 05/16/18 Follow up with: [facility] [place] [phone] Follow up in: Keep scheduled appoint (Please follow up in office in one week for BP check. ) Discharge Diet: As Tolerates Discharge Activity: No Heavy Lifting x 6 wks, Pelvic Rest CHEYENNE CHÁVEZ DO Sep 15, 2018 07:51
--- NOTE | 2018-09-15 08:05 | OB/GYN Progress Note ---
OB Subjective Progress Notes Subjective Pt doing well. Pain controlled, lochia light, , ready for d.c. OB Objective Physical Exam Vital Signs Date Time Temp Pulse Resp B/P (MAP) Pulse Ox O2 Delivery O2 Flow Rate FiO2 09/15/18 03:50 81 15 134/97 (109) 93 Room Air 09/14/18 23:25 98.4 Intake and Output 09/15/18 07:01 Intake Total 460 ml Balance 460 ml Intake Oral 460 ml # Voids 2 General Appearance: Alert/Awake/No Acute Distress Neurological: No Gross deficits Eyes: Normal Extraocular Movement & Vison ENT: Normal Respiratory: No Respiratory Distress Abdomen: Fundus Firm : Normal Musculoskeletal: No Weakness/Pain Extremities: No Cyanosis,Clubbing or Edema Integumentary: Skin Intact without Lesions or Rash Psychological: Alert & Oriented X3, Appropriate Mood & Affect 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 (2) 37 weeks gestation of Status: Resolved (3) Encounter for induction of labor Onset Date: ~ 09/13/2018 Status: Resolved (4) (normal spontaneous vaginal delivery) Status: Resolved (5) First degree laceration of perineum during delivery, Onset Date: ~ 09/14/2018 Status: Acute (6) care following vaginal delivery Onset Date: ~ 09/13/2018 Status: Acute CHEYENNE CHÁVEZ DO Sep 15, 2018 08:05
[2018-09-15 08:30] VITALS: BP 152/96
[2018-09-15] MEDS: GLYCERIN/WITCH HAZEL LEAF 1 PK TP PRN (08:39)
[2018-09-15] MEDS: BENZOCAINE 20% 60 ML BTL TP PRN (08:39)
[2018-09-15] MEDS: DOCUSATE CALCIUM 240 MG CAP PO SCH (08:39)
[2018-09-15] MEDS: LANOLIN OINT 7 GM TUBE TP PRN (08:39)
[2018-09-15 11:30] VITALS: BP 146/91
[2018-09-15] MEDS: APAP/HYDROCODONE 325/5 TAB PO PRN (12:06)
== END 2018-09-15 13:20 | disposition home or self-care (01) | DRG 807 ==
LOC: OB 15:11
PROVIDERS: ADMIT Student in an Organized Health Care Education/Training Program; ATTEND Student in an Organized Health Care Education/Training Program
PROC: 10E0XZZ Delivery of Products of Conception, External Approach (ICD-10-PCS; principal; 2018-09-13)
PROC: 10907ZC Drainage of Amniotic Fluid, Therapeutic from Products of Conception, Via Natural or Artificial Opening (ICD-10-PCS; 2018-09-13)
PROC: 0HQ9XZZ Repair Perineum Skin, External Approach (ICD-10-PCS; 2018-09-13)
PROC: 3E033VJ Introduction of Other Hormone into Peripheral Vein, Percutaneous Approach (ICD-10-PCS; 2018-09-13)
DX: O13.4 Gestational [pregnancy-induced] hypertension without significant proteinuria, complicating childbirth (principal); Z37.0 Single live birth; O69.81X0 Labor and delivery complicated by cord around neck, without compression, not applicable or unspecified; O99.214 Obesity complicating childbirth; E66.9 Obesity, unspecified; O70.0 First degree perineal laceration during delivery; Z3A.37 37 weeks gestation of pregnancy; Z91.040 Latex allergy status
CPT/HCPCS: 86850; 86900; 86901; J2590; J7120

== ENCOUNTER → 2018-09-13 | Outpatient (CLI) | payer MEDICAID ==
[2018-06-22 07:51] VITALS: BMI 33.9
== END ==
LOC: LAB 14:48
PROVIDERS: ATTEND Advanced Practice Midwife
DX: O13.3 Gestational [pregnancy-induced] hypertension without significant proteinuria, third trimester (principal)
CPT/HCPCS: 36415; 82040; 82247; 82310; 82374; 82435; 82565; 82570; 82947; 84075; 84132; 84155; 84156; 84295; 84450; 84460; 84520; 85027